=== PATIENT | male | born 1945 | race African-American/Black ===

== ENCOUNTER 2017-03-23 19:19 | Inpatient (IN) | payer MEDICARE, MEDICAID ==
[~2017-03-23] VITALS: Ht 170.2 cm; Wt 80.9 kg
--- NOTE | 2017-03-23 21:50 | NUR ---
TELERN RECEIVED FROM [facility], A 71 Y/O MALE WITH DX OF CEREBRAL INFARCT. PATIENT IS ALERT/ORIENTED X4, AMBULATORY SCORE OF 0 FOR NIHSS SCREENING. HL X2 PATENT ON BOTH UPPER EXT. ABLE TO PROVIDE ADMISSION INFO. STATED HAS NOCTURNAL SLEEP THAT HE WAKES UP IN THE MIDDLE OF THE NIGHT AND JUST GO BACK TO SLEEP RIGHT AWAY. SPEECH CLEAR BUT DELAY/SLOW AT TIMES. V/S STALE, SR WITH BBB, FEELING HUNGRY PROVIDED SOLID FOOD ABLE TO TOLERATE NO DIIF SWALLOWING, ALTHOUGH ASPIRATION PRECAUTIONS. NO MEDICAL HISTORY EXCEPT ABIOLA EYELIDS SX AND RIGHT EYE CATARACT. STATED HAD ROTATOR CUFF SX YEARS BACK. STILL HAS SLIGHT HD AND OCC DIZZINESS, SAFETY PRECAUTIONS INSTRUCTED. ORIENTED TO [facility] FACILITIES, REMINDED TO CALL STAFF FOR ANY ASSISTANCE OR FURTHER DISCOMFORTS. CALL LIGHT USE REVIEWED WITH PATIENT, WELL UNDERSTOOD. NO HOME MEDS. STATED HE DOES NOT TAKE ANY MEDS, AND MOST PROBABLY HAS BEEN FEELING DIFFERENT FOR A WHILE THAT HE IGNORES AND MIGHT WELL BE HOSPITALIZED TO FIND OUT WHAT IS WRONG, STATED BY PATIENT. ALL NEEDS MADE CONTINUED MONITORING.
[2017-03-23 21:55] VITALS: BP 157/89
[2017-03-23 22:00] VITALS: BP 157/89
[2017-03-23 22:26] LABS: BASOPHILS % (AUTO) 0.4 % (0.0-2.0); EOSINOPHILS # (AUTO) 0.1 /CMM (0.0-0.7); EOSINOPHILS % (AUTO) 1.1 % (0.0-6.0); HEMATOCRIT 46 % (39-51); LYMPHOCYTES # (AUTO) 1.6 /CMM (0.8-4.8); LYMPHOCYTES % (AUTO) 32.6 % (20.0-44.0); MEAN CORPUSCULAR HEMOGLOBIN 29 PG (26.0-33.0); MEAN CORPUSCULAR HGB CONC 33 g/dl (31.0-36.0); MEAN CORPUSCULAR VOLUME 87 fL (80-96); MONOCYTES # (AUTO) 0.5 /CMM (0.1-1.30); MONOCYTES % (AUTO) 10.3 % (2.0-12.0); NEUTROPHILS # (AUTO) 2.7 /CMM (1.8-8.9); NEUTROPHILS % (AUTO) 55.6 % (43.0-81.0); PLATELET COUNT (AUTO) 208 /CMM (150-450); RDW COEFFICIENT OF VARIATION 13.3 (11.5-15.0); RED BLOOD CELL COUNT(AUTO) 5.26 MIL/uL (4.5-6.0); WHITE BLOOD COUNT (AUTO) 4.9 K/uL (4.3-11.0)
[2017-03-23 22:36] LABS: CREATININE 1.3 mg/dL (0.6-1.3); POTASSIUM 4.7 mmol/L (3.5-5.1)
[2017-03-23 22:39] LABS: INR 1.02 (0.87-1.13); PROTHROMBIN TIME 10.9 SECS (9.5-12.7)
[2017-03-23] MEDS ORDERED: ENOXAPARIN SODIUM 40 MG/0.4 ML DISP.SYRIN SQ ONE (22:44)
[2017-03-23 22:49] LABS: THYROID STIMULATING HORMONE 1.559 uIU/mL (0.358-3.74)
[2017-03-23 22:50] LABS: ALBUMIN 3.9 g/dL (3.4-5.0); BILIRUBIN,TOTAL 1.2 mg/dL (0.2-1.0); TOTAL PROTEIN, SERUM 7.2 g/dL (6.4-8.2)
[2017-03-23] MEDS: ENOXAPARIN SODIUM 40 MG/0.4 ML DISP.SYRIN SQ SCH (23:03)
[2017-03-23] MEDS: BLOOD SUGAR DIAGNOSTIC 1 EACH STRIP IN SCH (23:04)
--- NOTE | 2017-03-23 23:45 | NUR ---
TELERN SEEN BY DR. QURESHI. JUST FINISHED EATING.
[2017-03-24] VITALS (8 sets, daily range): BP systolic 108–134; BP diastolic 66–79
[2017-03-24] MEDS ORDERED: BLOOD SUGAR DIAGNOSTIC 1 EACH STRIP IN SCH
[2017-03-24] MEDS ORDERED: ATORVASTATIN 10 MG TABLET ONE ×2 (02:35→02:44)
[2017-03-24] MEDS: ASPIRIN 81 MG TAB.CHEW PO SCH ×2 (02:36→09:46)
--- NOTE | 2017-03-24 02:40 | NUR ---
HUNG NEDS 20MG OF LIPITOR, TOOK 1 TAB 10MG.. PATIENT NEEDS 20 MG PO. ANOTHER 10 MG TAB OF LIPITOR OVERIDE.
[2017-03-24] MEDS: ATORVASTATIN 10 MG TABLET PO SCH ×2 (02:48→21:25)
--- NOTE | 2017-03-24 03:04 | NUR ---
TELERN FALEEN ASLEEP FOR AWHILE EASILY AWAKENED WHEN CALLED, DUE MEDS ADMINISTERED. NO FURTHER DISCOMFORTS MADE, STABLE FOR NOW.
[2017-03-24 03:15] LABS: BASOPHILS % (AUTO) 0.5 % (0.0-2.0); EOSINOPHILS # (AUTO) 0.1 /CMM (0.0-0.7); EOSINOPHILS % (AUTO) 1.8 % (0.0-6.0); HEMATOCRIT 43 % (39-51); HEMOGLOBIN 14.2 g/dL (13.5-17.5); LYMPHOCYTES # (AUTO) 1.7 /CMM (0.8-4.8); MEAN CORPUSCULAR HEMOGLOBIN 29 PG (26.0-33.0); MEAN CORPUSCULAR HGB CONC 33 g/dl (31.0-36.0); MEAN CORPUSCULAR VOLUME 87 fL (80-96); MONOCYTES # (AUTO) 0.5 /CMM (0.1-1.30); MONOCYTES % (AUTO) 10.2 % (2.0-12.0); NEUTROPHILS # (AUTO) 2.5 /CMM (1.8-8.9); NEUTROPHILS % (AUTO) 52.5 % (43.0-81.0); PLATELET COUNT (AUTO) 201 /CMM (150-450); RDW COEFFICIENT OF VARIATION 13.5 (11.5-15.0); RED BLOOD CELL COUNT(AUTO) 4.94 MIL/uL (4.5-6.0); WHITE BLOOD COUNT (AUTO) 4.8 K/uL (4.3-11.0)
[2017-03-24 03:26] LABS: CALCIUM, SERUM 8.3 mg/dL (8.5-10.1); CREATININE 1.2 mg/dL (0.6-1.3); POTASSIUM 3.6 mmol/L (3.5-5.1)
[2017-03-24 03:28] LABS: INR 1.03 (0.87-1.13)
--- NOTE | 2017-03-24 06:30 | NUR ---
TELERN BS WAS 89 NO COVERAGE. REMAINS STABLE, DENIES ANY DISCOMFORTS. REMAINS SR ON THE MONITOR.
--- NOTE | 2017-03-24 06:30 | NUR ---
HUNG MATOS WAS 159 COVERED WITH 2 UNITS OF REG INS SQ. Addendum: 03/24/17 at 0756 by JANET VEGA RN DISREGARD ABOVE DOCUMENTATION. WRONG PATIENT
[2017-03-24] MEDS: BLOOD SUGAR DIAGNOSTIC 1 EACH STRIP IN SCH ×4 (06:35→22:31)
--- NOTE | 2017-03-24 07:30 | NUR ---
MS/RN PT. 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
[2017-03-24 07:32] LABS: APPEARANCE,URINE CLEAR (CLEAR); BILIRUBIN,URINE NEGATIVE (NEGATIVE); BLOOD, URINE NEGATIVE Ery/uL (NEGATIVE); COLOR,URINE YELLOW (YELLOW); KETONES,URINE NEGATIVE (NEGATIVE); LEUKOCYTE ESTERASE ,URINE NEGATIVE (NEGATIVE); NITRITE, URINE NEGATIVE (NEGATIVE); PH,URINE 5.5 (5.0-8.0); PROTEIN,URINE NEGATIVE (NEGATIVE); UGLUCOSE NEGATIVE (NEGATIVE); UROBILINOGEN,URINE 0.2 EU/dL (0.2)
--- NOTE | 2017-03-24 08:00 | NUR ---
MS/RN OPENING NOTE PT. IS SITTING UP IN BED AWAKE WITH LAPTOP ON BED, AND HEADPHONES ON. PT. IS A&OX4. NO S/S OF DISTRESS, NO SOB, BREATHING ON ROOM AIR EVENLY AND UNLABORED. PT. HAS TELEMETRY LEADS ON. DVT COMPRESSION PUMPS ON BOTH LOWER LEGS. BED IS IN LOW POSITION, 2 SIDE RAILS UP, CALL LIGHT WITHIN REACH, AND ALL NEEDS ATTENDED TO.
--- NOTE | 2017-03-24 08:01 | NUR ---
TEXTED DR. LEOS FOR MRI APPROVAL.
--- NOTE | 2017-03-24 19:30 | NUR ---
MS/RN CLOSING NOTE PT. IS SITTING UP IN BED, A&OX4. NO S/S OF DISTRESS, NO SOB, PT. IS BREATHING ON ROOM AIR EVENLY, AND UNLABORED. PT. HAS A SINUS RHYTHM 77 BPM WITH BUNDLE BRANCH BLOCK LEFT. 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 PT. HAD MRI AND PHYSICAL THERAPY EVALUATION. BED IS IN LOW POSITION, 2 SIDE RAILS UP, CALL LIGHT WITHIN REACH, AND ALL NEEDS ATTENDED TO. WILL ENDORSE REPORT TO BENCH CARPENTER NURSE.
[2017-03-24] MEDS: ENOXAPARIN SODIUM 40 MG/0.4 ML DISP.SYRIN SQ SCH (21:25)
[2017-03-25] VITALS: BP 129/70
[2017-03-25 04:00] VITALS: BP 117/64
--- NOTE | 2017-03-25 06:20 | NUR ---
NUTRITION REPRESENTATIVE NOTES AWAKE & RESPONSIVE. NOT IN ANY DISTRESS. NO SOB NOTED. DENIES ANY PAIN OR DISCOMFORT AT THIS TIME. ON TELE SR WITH BBB @ 68 WITH IV-HL PATENT & INTACT. MONITORED ACCORDINGLY. CALL LIGHT WITHIN REACH. BED IN LOWEST POSITION. SR UP X 2 FOR SAFETY. WILL ENDORSE TO NEXT SHIFT.
[2017-03-25 06:37] LABS: BASOPHILS % (AUTO) 0.6 % (0.0-2.0); EOSINOPHILS # (AUTO) 0.1 /CMM (0.0-0.7); EOSINOPHILS % (AUTO) 2.2 % (0.0-6.0); HEMATOCRIT 45 % (39-51); HEMOGLOBIN 15.2 g/dL (13.5-17.5); LYMPHOCYTES # (AUTO) 1.8 /CMM (0.8-4.8); MEAN CORPUSCULAR HEMOGLOBIN 29 PG (26.0-33.0); MEAN CORPUSCULAR HGB CONC 34 g/dl (31.0-36.0); MEAN CORPUSCULAR VOLUME 86 fL (80-96); MONOCYTES # (AUTO) 0.5 /CMM (0.1-1.30); MONOCYTES % (AUTO) 12.5 % (2.0-12.0); NEUTROPHILS # (AUTO) 1.7 /CMM (1.8-8.9); NEUTROPHILS % (AUTO) 41.7 % (43.0-81.0); PLATELET COUNT (AUTO) 197 /CMM (150-450); RDW COEFFICIENT OF VARIATION 13.6 (11.5-15.0); WHITE BLOOD COUNT (AUTO) 4.1 K/uL (4.3-11.0)
[2017-03-25 06:56] LABS: CALCIUM, SERUM 8.8 mg/dL (8.5-10.1); CREATININE 1.2 mg/dL (0.6-1.3); POTASSIUM 4.2 mmol/L (3.5-5.1)
[2017-03-25] MEDS: ASPIRIN 81 MG TAB.CHEW PO SCH (07:55)
[2017-03-25 08:00] VITALS: BP 120/69
[2017-03-25] MEDS: BLOOD SUGAR DIAGNOSTIC 1 EACH STRIP IN SCH ×4 (08:00→21:42)
--- NOTE | 2017-03-25 08:00 | NUR ---
MS/RN OPENING NOTE PT. IS SITTING UP IN BED AWAKE, A&OX4. NO SOB, BREATHING ON ROOM AIR EVEN AND UNLABORED. NO S/S OF DISTRESS. REMOVED EXTERNAL TRAFFIC II MANAGER WITH LEADS PER MD ORDER FOR TELEMETRY DISCHARGE. BLOOD SUGAR WAS 94. PT. CAN AMBULATE AT [facility] PER MD ORDER. BED IS IN LOW POSITION, 2 SIDE RAILS UP, CALL LIGHT WITHIN REACH, AND ALL NEEDS ATTENDED TO. WILL CONTINUE TO ASSESS AND MONITOR PT.
[2017-03-25 16:00] VITALS: BP 129/72
--- NOTE | 2017-03-25 19:00 | NUR ---
MS/RN CALLED MD CALLED DR. LIZAMA REGARDING PT.'S DISCHARGE PLAN FOR TODAY PER PT. REQUEST. LEFT DOCTOR A MESSAGE WITH CALL BACK NUMBER. [facility] HAVING A NEUROLOGIST CONSULT AND TO ASK ABOUT POSSIBLE DISCHARGE TODAY.
--- NOTE | 2017-03-25 19:05 | NUR ---
MS RN OPENING NOTES: RECEIVED PT IN BED A/O X 4. PT IS AWAKE AND LAYING DOWN ON HIS LAPTOP. PT KEPT CLEAN, DRY, AND COMFORTABLE. CALL LIGHT WITHIN PT'S REACH. PT HAS A L WRIST 18G AND A R AC #20G. PT IS HEP LOCK. BED KEPT IN LOCKED, LOWEST POSITION, AND SIDE RAILS X 2 UP. NO SIGNS OR SYMPTOMS OF DISTRESS AT THIS TIME. WILL CONTINUE TO MONITOR PT.
--- NOTE | 2017-03-25 19:30 | NUR ---
MS/RN CLOSING NOTE PT. IS AWAKE SITTING IN CHAIR A&OX4. NO S/S OF DISTRESS, NO SOB. PT. IS BREATHING ON ROOM AIR UNLABORED. PT. CAN AMBULATE AT [facility]. PT. HAS NEUROLOGIST CONSULT TODAY. BED IS IN LOW POSITION, SIDE RAILS UP, CALL LIGHT WITHIN REACH, AND ALL NEEDS ATTENDED TO.
[2017-03-25 19:51] VITALS: BP 129/77
[2017-03-25 20:00] VITALS: BP 129/77
[2017-03-25] MEDS: ENOXAPARIN SODIUM 40 MG/0.4 ML DISP.SYRIN SQ SCH (20:12)
[2017-03-25] MEDS: ATORVASTATIN 10 MG TABLET PO SCH (21:42)
--- NOTE | 2017-03-25 21:44 | NUR ---
MS RN NOTES: BLOOD SUGAR WAS 76. NO COVERAGE WAS GIVEN. WILL CONTINUE TO MONITOR PT.
[2017-03-26] MEDS: BLOOD SUGAR DIAGNOSTIC 1 EACH STRIP IN SCH (06:05)
--- NOTE | 2017-03-26 06:06 | NUR ---
MS RN NOTES: BLOOD SUGAR WAS 90. NO COVERAGE WAS GIVEN. WILL CONTINUE TO MONITOR PT.
--- NOTE | 2017-03-26 07:35 | NUR ---
MS RN CLOSING NOTES: ALL NEEDS WERE ATTENDED TO ACCORDINGLY. PT IS IN BED LAYING DOWN A/OX4. PT HAS IV ON L WRIST #18G AND ALSO AN IV ON R AC #20G. IV ON RC #20G IS HEP LOCK. BOTH ARE PATENT AND INTACT. NEURO CHECKS DONE Q4HRS THROUGHOUT SHIFT. NO MAJOR CHANGES. NO SIGNS OR SYMPTOMS OF DISTRESS NOTED. CALL LIGHT WITHIN PT'S REACH. BED KEPT IN LOCKED, LOWEST POSITION, AND SIDE RAILS X 2 UP. ENDORSED TO AM NURSE FOR CONTINUITY OF CARE.
--- NOTE | 2017-03-26 07:40 | NUR ---
MS RN OPENING NOTE PATIENT IS ALERT AND ORIENTED x4. NO PAIN AT THIS TIME. NO SOB OR DISTRESS NOTED. CALL LIGHT WITHIN REACH. SAFETY MEASURES IMPLEMENTED. SEIZURE PRECAUTION IN PLACE. Q4 HOUR NEURO CHECKS. IV INTACT AND PATENT NO REDNESS OR SWELLING NOTED. ABLE TO COMMUNICATE NEEDS. POSSIBLE DISCHARGE THIS MORNING. WILL CONTINUE TO MONITOR
[2017-03-26 08:00] VITALS: BP 124/73
[2017-03-26] MEDS: ASPIRIN 81 MG TAB.CHEW PO SCH (08:04)
[2017-03-26] MEDS ORDERED: ASPI81TA2 PO (08:29)
[2017-03-26] MEDS ORDERED: ATOR10TA PO (08:29)
--- NOTE | 2017-03-26 11:20 | NUR ---
MS PERSONAL COUNSELOR NOTE PATIENT IS ALERT AND ORIENTED x4. NO PAIN AT THIS TIME. NO SOB OR DISTRESS NOTED. CALL LIGHT WITHIN REACH AT ALL TIMES. SAFETY MEASURES IMPLEMENTED. ALL BELONGINGS WITH PATIENT AT BEDSIDE AND ACCOUNTED FOR. DISCHARGE INSTRUCTIONS GIVEN TO PATIENT, PATIENT ABLE TO VERBALIZE INSTRUCTIONS. IV REMOVED. SKIN INTACT. PATIENT LEAVING VIA TAXI. PRESCRIPTION WITH PATIENT.
== END 2017-03-26 11:20 | disposition home or self-care (01) | DRG 69 ==
LOC: TELE 21:46 → MED 03-25 09:22
PROVIDERS: ADMIT Internal Medicine; ATTEND Internal Medicine
DX: G45.9 Transient cerebral ischemic attack, unspecified (principal); E78.5 Hyperlipidemia, unspecified; I10 Essential (primary) hypertension; I70.0 Atherosclerosis of aorta; I44.7 Left bundle-branch block, unspecified; I34.0 Nonrheumatic mitral (valve) insufficiency; I65.23 Occlusion and stenosis of bilateral carotid arteries; R49.9 Unspecified voice and resonance disorder
CPT/HCPCS: 36415; 70551-TC; 80048-TC; 80053-TC; 80061-TC; 80305; 81000-TC; 82962-TC; 83880; 84443-TC; 84484-TC; 85025-TC; 85652-TC; 85730-TC; 87081-TC; 92611-TC; 93307-TC; 93880-TC; 97001-TC; J1650